=== PATIENT | male | born 1960 | race American Indian/Alaskan Native ===

== ENCOUNTER 2016-06-19 18:30 | Emergency (ER) | payer SELFPAY ==
--- NOTE | 2016-06-22 15:28 | ED Elopement Review ---
ED Pt Elopement review - Call Back decision Pt Call Back Decision: No action required
== END 2016-06-19 19:30 | disposition left against medical advice (07) ==
LOC: ED 18:30
DX: R51 Headache (principal); R42 Dizziness and giddiness; Z53.21 Procedure and treatment not carried out due to patient leaving prior to being seen by health care provider